=== PATIENT | female | born 1995 | race African-American/Black ===

== ENCOUNTER 2016-08-14 20:44 | Emergency (ER) | payer MEDICAID, OTHER ==
[~2016-08-14] VITALS: Ht 180.3 cm; Wt 77.0 kg
[2016-08-14 20:46] VITALS: BP 126/78; PULSE 94; RESP 15; TEMP 98; O2SAT 98
[2016-08-14] MEDS ORDERED: SODIUM CHLOR 0.9% 1000 ML INJ 1,000 ML IV SCH (22:31)
--- NOTE | 2016-08-14 22:39 | PD ---
HPI Chief Complaint: GI Complaint Time Seen by Provider: 22:28 Travel History International Travel<30 days: No Contact w/Intl Traveler<30days: No Traveled to known affect area: No History of Present Illness HPI Patient is a 21-year-old female who presents to emergency room with complaints of abdominal pain. Patient reports that she woke up from sleep around 3 AM, reports that she has been having increased nausea vomiting and diarrhea. Patient reports that she has been having pain around her epigastrium to upper abdomen. Patient reports that she has not been able to keep down any food at this time. Denies any sick contacts. No recent travels or trips. PFSH Past Medical History ?: Not LMP: 4 DAYS AGO Social History Alcohol Use: No Tobacco Use: No Allergies-Medications (Allergen,Severity, Reaction): Coded Allergies: No Known Allergies (Verified , 08/14/16) Reported Meds & Prescriptions Reported Meds & Active Scripts Active Zofran Odt (Ondansetron Odt) 4 Mg Tab 4 Mg SL Q6HR PRN Review of Systems General / Constitutional: No: Fever Eyes: No: Visual changes HENT: No: Headaches Cardiovascular: No: Chest Pain or Discomfort Respiratory: No: Shortness of Breath Gastrointestinal: Positive: Nausea, Vomiting, Diarrhea, Abdominal Pain Genitourinary: No: Dysuria Musculoskeletal: No: Pain Skin: No Rash Neurologic: No: Weakness Psychiatric: No: Depression Endocrine: No: Polydipsia Hematologic/Lymphatic: No: Easy Bruising Physical Exam Narrative GENERAL: No acute distress, nontoxic SKIN: Warm and dry. HEAD: Atraumatic. Normocephalic. EYES: Pupils equal and round. No scleral icterus. No injection or drainage. ENT: No nasal bleeding or discharge. Mucous membranes pink and moist. NECK: Trachea midline. No JVD. CARDIOVASCULAR: Regular rate and rhythm. No murmur appreciated. RESPIRATORY: No accessory muscle use. Clear to auscultation. Breath sounds equal bilaterally. GASTROINTESTINAL: Abdomen soft, mild tenderness to her upper abdomen and periumbilical region, no rebound or guarding on exam MUSCULOSKELETAL: No obvious deformities. No clubbing. No cyanosis. No edema. NEUROLOGICAL: Awake and alert. No obvious cranial nerve deficits. Motor grossly within normal limits. Normal speech. PSYCHIATRIC: Appropriate mood and affect; insight and judgment normal. Data Data Last Documented VS Vital Signs Date Time Temp Pulse Resp B/P Pulse Ox O2 Delivery O2 Flow Rate FiO2 08/14/16 20:46 98.0 94 15 126/78 98 Room Air Orders Complete Blood Count With Diff (08/14/16 22:31) Comprehensive Metabolic Panel (08/14/16 22:31) Urinalysis - C+S If Indicated (08/14/16 22:31) Iv Access Insert/Monitor (08/14/16 22:31) Morphine Inj (Morphine Inj) (08/14/16 22:45) Ondansetron Inj (Zofran Inj) (08/14/16 22:45) Sodium Chlor 0.9% 1000 Ml Inj (Ns 1000 M (08/14/16 22:31) Sodium Chloride 0.9% Flush (Ns Flush) (08/14/16 22:45) Ed Urine Pregnancytest Poc (08/14/16 22:31) Sodium Chlor 0.9% 1000 Ml Inj (Ns 1000 M (08/14/16 22:45) Famotidine Inj (Pepcid Inj) (08/14/16 22:45) Al-Mag Hy-Si 40-40-4 Mg/Ml Liq (Mag-Al P (08/14/16 22:45) Lidocaine 2% Viscous (Xylocaine 2% Visco (08/14/16 22:45) Potassium Chloride (Kcl) (08/15/16 00:00) Ct Abd/Pel W Iv Contrast(Rout) (08/15/16 ) Iohexol 350 Inj (Omnipaque 350 Inj) (08/15/16 00:13) Labs Laboratory Tests Test 08/14/16 22:45 White Blood Count 8.9 TH/MM3 Red Blood Count 5.35 MIL/MM3 Hemoglobin 14.4 GM/DL Hematocrit 43.0 % Mean Corpuscular Volume 80.3 FL Mean Corpuscular Hemoglobin 26.9 PG Mean Corpuscular Hemoglobin 33.5 % Concent Red Cell Distribution Width 14.2 % Platelet Count 195 TH/MM3 Mean Platelet Volume 10.0 FL Neutrophils (%) (Auto) 94.0 % Lymphocytes (%) (Auto) 2.1 % Monocytes (%) (Auto) 3.4 % Eosinophils (%) (Auto) 0.0 % Basophils (%) (Auto) 0.5 % Neutrophils # (Auto) 8.4 TH/MM3 Lymphocytes # (Auto) 0.2 TH/MM3 Monocytes # (Auto) 0.3 TH/MM3 Eosinophils # (Auto) 0.0 TH/MM3 Basophils # (Auto) 0.0 TH/MM3 CBC Comment DIFF FINAL Differential Comment Sodium Level 137 MEQ/L Potassium Level 3.0 MEQ/L Chloride Level 104 MEQ/L Carbon Dioxide Level 23.0 MEQ/L Anion Gap 10 MEQ/L Blood Urea Nitrogen 9 MG/DL Creatinine 1.00 MG/DL Estimat Glomerular Filtration 84 ML/MIN Rate Random Glucose 108 MG/DL Calcium Level 9.1 MG/DL Total Bilirubin 1.1 MG/DL Aspartate Amino Transf 14 U/L (AST/SGOT) Alanine Aminotransferase 19 U/L (ALT/SGPT) Alkaline Phosphatase 83 U/L Total Protein 9.0 GM/DL Albumin 4.4 GM/DL [facility] Medical Decision Making Medical Screen Exam Complete: Yes Emergency Medical Condition: Yes Interpretation(s) Vital Signs Date Time Temp Pulse Resp B/P Pulse Ox O2 Delivery O2 Flow Rate FiO2 08/14/16 20:46 98.0 94 15 126/78 98 Room Air Differential Diagnosis Gastritis, gastroenteritis, acute cholecystitis, acute appendicitis Narrative Course Patient is a 21-year-old female who presents to emergency room with complaints of abdominal pain. Patient reports that she woke up around 3 AM this morning and had abdominal pain, reports that she has been having increased nausea vomiting and diarrhea all day. That she has not been able to tolerate any fluids or food all day. Patient overall nontoxic appearing on evaluation. Patient is laughing at her partner who is at bedside and I had to redirect patient multiple times during my initial evaluation. Patient does have some tenderness to her periumbilical region and epigastrium, plan to obtain IV, labs as well as CAT scan of abdomen and pelvis with IV contrast ordered. IV fluids as well as antinausea medications and pain medications ordered for her. CBC & BMP Diagram 08/14/16 22:45 Patient reevaluated, patient reports that she is feeling much better at this time. Abdomen is soft, nontender, nondistended, no peritoneal signs. Reviewed all labs as well as ct report along with incidental findings with patient detail. Patient will follow-up with primary care doctor and return to emergency room as needed. Signs and symptoms of when to return to emergency room was reviewed with patient in detail. Diagnosis Primary Impression: Abdominal pain Qualified Code: R10.84 - Generalized abdominal pain Additional Impression: Hypokalemia Patient Instructions: General Instructions Additional Instructions: Please follow-up with your primary care doctor in 1-2 days Return to emergency room if symptoms persist or worsen Return to the emergency room as needed Scripts Ondansetron Odt (Zofran Odt)4 Mg Tab4 Mg SL Q6HR PRN (Nausea/Vomiting) #30 TAB Ref 0 Prov:Ruthy Chaney DO 08/15/16 Disposition: 01 DISCHARGE HOME Condition: Stable Ruthy Chaney DO Aug 14, 2016 22:39
[2016-08-14] MEDS ORDERED: ONDANSETRON HCL 4 MG/2 ML VIAL IVP ONE (22:45)
[2016-08-14] MEDS ORDERED: MORPHINE SULFATE 4 MG/ML INJ IV PUSH ONE (22:45)
[2016-08-14] MEDS ORDERED: FAMOTIDINE 20 MG/2 ML VIAL IV PUSH ONE (22:45)
[2016-08-14] MEDS ORDERED: SODIUM CHLOR 0.9% 1000 ML INJ 1,000 ML IV ONE (22:45)
[2016-08-14] MEDS ORDERED: ALUMINUM/MAGNESIUM/SIMETH 30 ML CUP PO ONE (22:45)
[2016-08-14] MEDS ORDERED: SODIUM CHLORIDE 0.9% FLUSH 5 ML FLUSH IVF PRN (22:45)
[2016-08-14] MEDS ORDERED: LIDOCAINE VISCOUS 2% SOLN 15 ML UDC PO ONE (22:45)
[2016-08-14 23:03] LABS: AUTOMATED NEUTROPHIL # 8.4 TH/MM3 (1.8-7.7); BASOPHIL % 0.5 % (0.0-2.0); HEMO FLAGS DIFF FINAL; LYMPH % 2.1 % (9.0-44.0); LYMPHOCYTE # 0.2 TH/MM3 (1.0-4.8); MEAN CELL VOLUME 80.3 FL (80.0-100.0); MEAN CORPUSCULAR HEMOGLOBIN 26.9 PG (27.0-34.0); MEAN CORPUSCULAR HGB CONC 33.5 % (32.0-36.0); MONO % 3.4 % (0.0-8.0); PLATELET COUNT 195 TH/MM3 (150-450); RED BLOOD COUNT 5.35 MIL/MM3 (4.00-5.30); RED CELL DISTRIBUTION WIDTH 14.2 % (11.6-17.2); WHITE BLOOD COUNT 8.9 TH/MM3 (4.0-11.0)
[2016-08-14 23:33] LABS: ANION GAP 10 MEQ/L (5-15); AST (GOT) 14 U/L (15-37); BLOOD UREA NITROGEN 9 MG/DL (7-18); CHLORIDE 104 MEQ/L (98-107); GLOMERULAR FILTRATION RATE 84 ML/MIN (>89); SODIUM (NA) 137 MEQ/L (136-145)
[2016-08-14 23:36] LABS: ALKALINE PHOSPHATASE 83 U/L (45-117); ALT (GPT) 19 U/L (10-53); TOTAL BILIRUBIN ADULT 1.1 MG/DL (0.2-1.0)
[2016-08-15] MEDS ORDERED: POTASSIUM CHLORIDE 10 MEQ CONTROLLED RELEASE TAB PO ONE
[2016-08-15] MEDS ORDERED: IOHEXOL 350 MG/ML 10 ML VIAL (for RAD DIAG) IV ONE (00:13)
[2016-08-15] MEDS ORDERED: ZOFR4TAB3 SL (00:18)
--- NOTE | 2016-08-15 00:41 | RADRPT ---
EXAM DATE/TIME: 08/15/2016 00:11 [facility] COMPARISON: No previous studies available for comparison. INDICATIONS : Abdomen pain with nausea and vomiting. IV CONTRAST: 96 cc Omnipaque 350 (iohexol) IV ORAL CONTRAST: No oral contrast ingested. RADIATION DOSE: 6.30 CTDIvol (mGy) MEDICAL HISTORY : None SURGICAL HISTORY : None. ENCOUNTER: Initial ACUITY: 1 day PAIN SCALE: 5/10 LOCATION: Bilateral abdomen TECHNIQUE: Volumetric scanning of the abdomen and pelvis was performed. Using automated exposure control and ad justment of the mA and/or kV according to patient size, radiation dose was kept as low as reasonably achievable to obtain optimal diagnostic quality images. FINDINGS: LOWER LUNGS: The visualized lower lungs are clear. LIVER: Homogeneous density without lesion. There is no dilation of the biliary tree. No calcified gallston es. SPLEEN: Normal size without lesion. PANCREAS: Within normal limits. KIDNEYS: Normal in size and shape. Punctate, 2 mm nonobstructing stone in the lower pole collecting system of the right kidney. ADRENAL GLANDS: Within normal limits. VASCULAR: There is no aortic aneurysm. BOWEL/MESENTERY: The stomach, small bowel, and colon demonstrate no acute abnormality. There is no free intraperitone al air or fluid. ABDOMINAL WALL: Within normal limits. RETROPERITONEUM: There is no lymphadenopathy. BLADDER: No wall thickening or mass. REPRODUCTIVE: Within normal limits. Uterus appears retroflexed. INGUINAL: There is no lymphadenopathy or hernia. MUSCULOSKELETAL: Within normal limits for patient age. CONCLUSION: 1. A 2 mm nonobstructing calculus in the lower pole collecting system of right kidney. 2. I believe the uterus is retroflexed but otherwise radiographically intact. 3. Otherwise negative. No acute intraperitoneal or pelvic process to explain current clinical symptom shaista Ferrell MD on August 15, 2016 at 0:37 Board Certified Radiologist. This report was verified electronically.
[2016-08-15 01:21] VITALS: BP 124/87
== END 2016-08-15 01:22 | disposition home or self-care (01) ==
LOC: NEPA 20:44
DX: R10.9 Unspecified abdominal pain (principal); E87.6 Hypokalemia
CPT/HCPCS: 74177; 80053; 84703; 85025; 96361; 96374; 96375; 99284; J2270; J2405; J7030; Q9967